=== PATIENT | male | born 1975 | race Caucasian/White ===

== ENCOUNTER 2017-01-15 05:00 | Emergency (ER) | payer BC, OTHER ==
--- NOTE | 2017-01-15 05:05 | NUR ---
NOT IN LOBBY AT THIS TIME FOR TRIAGE.
--- NOTE | 2017-01-15 05:10 | NUR ---
CALLED; NO ANSWER.
--- NOTE | 2017-01-15 05:18 | NUR ---
CALLED AG[facility]; NOT IN LOBBY.
--- NOTE | 2017-01-15 05:47 | NUR ---
STILL NOT IN LOBBY WHEN CALLED FOR TRIAGE.
== END 2017-01-15 05:50 | disposition left against medical advice (07) ==
LOC: ER 05:06
DX: Z53.21 Procedure and treatment not carried out due to patient leaving prior to being seen by health care provider (principal)